=== PATIENT | female | born 1945 ===

== ENCOUNTER 2021-10-22 05:37 | Day surgery (SDC) | payer OTHER ==
[~2021-10-22 05:37] MED LIST: BUSP PO; NAMEND PO; SYNTHROID100 MCG PO; TEMAZE PO; ZOLOFT50 MG PO; [UNRECOGNIZED DRUG - OTHER] PO
[2021-10-22] MEDS ORDERED: PERCOCET 5-3251 EACH PO (08:47)
== END 2021-10-22 12:13 | disposition home or self-care (01) ==
LOC: CIR.AMB 05:37
PROVIDERS: ATTEND Surgery
DX: K64.8 Other hemorrhoids (principal); E78.5 Hyperlipidemia, unspecified; M19.90 Unspecified osteoarthritis, unspecified site; G30.9 Alzheimer's disease, unspecified